=== PATIENT | female | born 1965 | race Hispanic/Latino ===

== ENCOUNTER 2020-11-02 16:31 | Emergency (ER) | payer OTHER ==
[~2020-11-02] VITALS: Ht 152.4 cm; Wt 57.2 kg
[2020-11-02] MEDS ORDERED: PREDNISONE20 MG PO (16:47)
[2020-11-02] MEDS ORDERED: AZITHROMYCIN250 MG PO (16:47)
[2020-11-02] MEDS ORDERED: VENTOLIN HFA18 GM INH (16:47)
== END 2020-11-02 20:20 | disposition home or self-care (01) ==
LOC: ER 16:48
DX: J06.9 Acute upper respiratory infection, unspecified (principal); R05 Cough; R53.81 Other malaise
CPT/HCPCS: 71045; 93005; 99283